=== PATIENT | male | born 1995 | race Caucasian/White ===

== ENCOUNTER 2021-03-20 19:19 | Emergency (ER) | payer OTHER, MEDICAID, SELFPAY ==
[2021-03-20] VITALS (11 sets, daily range): BP systolic 133–141; BP diastolic 64–76; PULSE 63–118; RESP 8–24; TEMP 37.2; O2SAT 96–98; BMI 28.7
[2021-03-20 19:51] LABS: Add Manual Diff / Slide Review NO; Basophils Absolute Auto 100 /uL (0-100); Basophils Percent Auto 0.7 % (0-2); Eosinophils Absolute Auto 100 /uL (0-450); Hemoglobin 14.3 g/dL (13.5-17.5); Lymphocytes Absolute Auto 2200 /uL (1100-4500); Lymphocytes Percent Auto 22.5 % (25-40); Mean Corpuscular Hemoglobin 30.5 PG (26-34); Mean Corpuscular Volume 87.1 fL (80-100); Monocytes Absolute Auto 700 /uL (0-900); Monocytes Percent Auto 6.9 % (3-14); Neutrophils Absolute Auto 6800 /uL (1500-7000); Neutrophils Percent Auto 68.9 % (50-75); Platelet Count 307 X10^3/uL (150-400); Red Blood Cell Count 4.71 X10^6/uL (4.5-5.9); Red Cell Distribution Width 12.6 % (11.6-14.8); White Blood Cell Count 9.9 X10^3/uL (4.5-11.0)
[2021-03-20 20:05] LABS: Alanine Aminotransferase 20 IU/L (<50); Albumin 4.4 g/dL (3.5-5.0); Albumin Globulin Ratio 1.5 (1.0-2.8); Alkaline Phosphatase 66 U/L (38-126); Aspartate Aminotransferase 29 IU/L (17-59); Bilirubin Total 0.5 mg/dL (0.2-1.3); Blood Urea Nitrogen 14 mg/dL (9-20); Calcium 9.2 mg/dL (8.4-10.2); Carbon Dioxide 25 mmol/L (22-32); Chloride 107 mmol/L (98-107); Estimated Glomerular Filt Rate > 60.0 mL/min (>60); Globulin 2.9 g/dL (1.7-4.1); Glucose 104 mg/dL (70-100); HEMOLYSIS < 15 (0-50); Potassium 4.3 mmol/L (3.4-5.1); Sodium 139 mmol/L (137-145); Total Protein 7.3 g/dL (6.3-8.2)
[2021-03-20 20:50] LABS: Appearance Urine UA CLEAR; Bacteria Urine None Seen; Bilirubin Urine UA NEGATIVE (NEGATIVE); Color Urine UA YELLOW; Glucose Urine UA NEGATIVE (Negative); Ketones Urine UA NEGATIVE (NEGATIVE); Leukocyte Esterase Urine UA NEGATIVE (NEGATIVE); Nitrite Urine UA NEGATIVE (Negative); Occult Blood Urine UA NEGATIVE (Negative); Protein Urine UA NEGATIVE (Negative); RBC Urine None Seen (0-5/HPF); Urobilinogen Urine UA 0.2 E.U./dL (0.2); WBC Urine None Seen (0-5/HPF)
[2021-03-20 21:03] LABS: Culture Indicated Urine Cult Not Indicated; Urine Comments Microscopic Normal
--- NOTE | 2021-03-20 21:16 | PC.NURSE ---
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 Reports pain and pressure behind jaw bones. Tonsil appears slightly larger and red on left. No exudate noted. Reports headache 8/10. pressure
--- NOTE | 2021-03-20 22:25 | DI.MRI.S_ITS ---
PROCEDURE: MR CERVICAL SPINE WO/W CON INDICATIONS: intermittent paresthesia and weakness TECHNIQUE: Noncontrast sagittal T1 spin echo and T2 fast spin echo, sagittal STIR, sagittal PD fast spin echo, foraminal oblique sagittal T2 fast spin echo, axial gradient echo or T2 fast spin echo through the cervical spine. After the administration of contrast, sagittal and axial T1 spin echo with fat saturation through the cervical spine. COMPARISON: None. FINDINGS: Image quality: Excellent. Alignment and curvature: Straightening of the normal lordotic curvature. Marrow: No acute fracture. Spinal cord: Visualized spinal cord is normal in size, without white matter lesions. No suspicious intramedullary enhancement. No cerebellar tonsillar herniation. Paraspinous soft tissues: No paravertebral masses or suspicious enhancement. C2-C3: Normal appearance. C3-C4: No canal narrowing. Minimal bilateral foraminal narrowing C4-C5: Normal appearance. C5-C6: Normal appearance. C6-C7: Normal appearance. C7-T1: Normal appearance. IMPRESSION: No cord signal changes to suggest demyelination. No abnormal enhancement. No high-grade canal or foraminal stenosis. Dictated by: Billy Rai M.D. on 03/21/2021 at 9:36 Approved by: Billy Rai M.D. on 03/21/2021 at 9:39
--- NOTE | 2021-03-20 22:25 | DI.MRI.S_ITS ---
PROCEDURE: MR HEAD/BRAIN WO/W CON INDICATIONS: paresthesias and weakness intermittent TECHNIQUE: Noncontrast axial T1 spin echo, axial T2 fast spin echo, sagittal and axial FLAIR, coronal T2 fast spin echo, axial gradient echo, axial diffusion and ADC through the brain. After the administration of contrast, axial and coronal 3D VIBE or T1 spin echo with fat saturation through the brain. COMPARISON: None. FINDINGS: Image quality: Excellent. CSF Spaces: Basal cisterns are patent. No extra-axial fluid collections. Ventricles are normal in size and shape. Brain: No midline shift. No intracranial bleeds or masses. No abnormal intracranial enhancement. The brainstem appears normal. Diffusion-weighted images demonstrate no acute ischemic insults. No chronic ischemic insults. Normal intravascular flow voids are present. Skull and face: Calvarial marrow is normal in signal. Orbits appear normal. Sinuses: Sinuses and mastoids appear clear. IMPRESSION: No specific white matter signal changes to suggest demyelination. No evidence of acute ischemia. No acute intracranial signal abnormality or enhancement. Dictated by: Billy Rai M.D. on 03/21/2021 at 9:32 Approved by: Billy Rai M.D. on 03/21/2021 at 9:34
[2021-03-20] MEDS: METOPROLOL IR 25 MG TABLET PO (22:37)
[2021-03-20] MEDS: SODIUM CHLORIDE 0.9% 1,000 ML 1000 ML IV (22:38)
[2021-03-20 23:14] LABS: Thyroid Stimulating Hormone 2.47 uIU/mL (0.47-4.68)
[2021-03-21] VITALS (20 sets, daily range): BP systolic 127–128; BP diastolic 70–72; PULSE 73–95; RESP 10–23; O2SAT 95–98
--- NOTE | 2021-03-21 05:01 | ED_ITS ---
HPI - Neuro Symptoms/Deficit <Mana Gupta MD - Last Filed: 03/27/21 18:22> General Chief Complaint: Neuro Symptoms/Deficit Stated Complaint: states he is having a stroke Time Seen by Provider: 03/20/21 19:33 Source: patient Mode of arrival: Ambulatory Limitations: no limitations History of Present Illness HPI Narrative: 25-year-old gentleman with a history of depression presents with an interesting progression of neurologic symptoms. Today he feels like his head is going to explode, he is numb all over, he feels like something is pushing at his carotid and his bowel is blocked. He feels that his entire body has lost sensation he has numbness in the tips of all toes and fingers and describes a distinct lying down the midline of his body with worsening symptoms on the right than the left. He describes an intense pressure behind his jaw that is worse with head position. Over the last week he complains of decreased eating, tongue numbness, occasional difficulty breathing, dizzy when he stands up, irregular heartbeat, his stomach isn't working and even his eyesight is not good as he sees black spots occasionally in all visual holman. He notes that he has had these symptoms for a number of years with significant progression recently. He has seen a neurologist in the past and 3 years ago had an MRI of the brain and nerve conduction studies that did not find any anatomic diagnoses and he was eventually diagnosed with psychosomatic syndrome. On presentation today he is quite lucid and obviously distressed by all of his physical symptoms and lack of unifying diagnosis. On Anticoagulants: Yes ([id number]) Related Data Home Medications Medication Instructions Recorded Confirmed bupropion HCl 300 mg 24 hr tablet, 300 mg PO QAM 03/18/21 03/18/21 extended release Previous Rx's Medication Instructions Recorded amoxicillin 875 mg tablet 875 mg PO BID 10 Days #20 tab 03/18/21 Allergies Allergy/AdvReac Type Severity Reaction Status Date / Time No Known Drug Allergies Allergy Verified 03/20/21 19:23 Review of Systems <Mana Gupta MD - Last Filed: 03/27/21 18:22> Review of Systems Narrative: Remainder of complete review of systems is otherwise unremarkable except for that included in the HPI. Hematologic/Lymphatic On Anticoagulants: Yes ([id number]) Patient History <Mana Gupta MD - Last Filed: 03/27/21 18:22> Medical History Acute recurrent tonsillitis Depression Social History Smoking Status: Never smoker Smoking Status: Never smoker alcohol intake frequency: holidays/special occasions only Substance Use Type: marijuana Exam <Mana Gupta MD - Last Filed: 03/27/21 18:22> Narrative Exam Narrative: General: Healthy appearing, in no acute distress. Able to give a complete and coherent history. Well-nourished well-developed HEENT: Moist mucous membranes, normal sclera with reactive pupils, Neck: No JVD, supple Respiratory: Lungs are clear to auscultation, no wheezing no rales no rhonchi. Full and symmetrical air movement Cardiac: Regular rate and rhythm no murmurs no bruits Abdomen: Soft, nontender, good bowel tones, no flank pain Skin: Warm and dry, no rashes Neurologic: Grossly neurologically intact with no obvious asymmetries or abnormalities. fine motor tremor affecting hands. Left small finger with uncontrolled extention spasm. Normal upper and lower extemity reflexes. No objective findings of acute senory loss Extremities: No trauma, well perfused Psych: defensive with poor eye contact Initial Vital Signs Initial Vital Signs: Vital Signs Temperature 99.0 F 03/20/21 19:23 Pulse Rate 63 03/20/21 19:23 Respiratory Rate 16 03/20/21 19:23 Blood Pressure 139/76 03/20/21 19:23 Pulse Oximetry 96 03/20/21 19:23 <Dianna Capone DO - Last Filed: 03/21/21 19:34> Initial Vital Signs Initial Vital Signs: Vital Signs Temperature 99.0 F 03/20/21 19:23 Pulse Rate 63 03/20/21 19:23 Respiratory Rate 16 03/20/21 19:23 Blood Pressure 139/76 03/20/21 19:23 Pulse Oximetry 96 03/20/21 19:23 Course <Mana Gupta MD - Last Filed: 03/27/21 18:22> Orders Ordered: Discontinued Medications Sodium Chloride (Normal Saline 0.9%) 1,000 mls @ 1,000 mls/hr IV BOLUS ONE Stop: 03/20/21 23:24 Last Infusion: 03/20/21 23:35 Dose: 0 mls/hr Documented by: Admin: 03/20/21 22:38 Dose: 1,000 mls/hr Documented by: MY Metoprolol Tartrate (Metoprolol Ir 25 Mg Tablet) 25 mg PO NOW ONE Stop: 03/20/21 22:26 Last Admin: 03/20/21 22:37 Dose: 25 mg Documented by: MY Vital Signs Vital signs: Vital Signs - 8 hr 03/21/21 02:00 03/21/21 02:30 03/21/21 03:00 Pulse Rate 81 83 79 Respiratory Rate 20 13 Pulse Oximetry 97 98 96 03/21/21 03:30 03/21/21 04:00 03/21/21 04:30 Pulse Rate 74 79 77 Respiratory Rate 13 15 12 Pulse Oximetry 97 97 96 03/21/21 05:00 03/21/21 05:30 03/21/21 06:00 Pulse Rate 78 75 75 Respiratory Rate 13 10 L 19 Pulse Oximetry 98 98 96 03/21/21 06:30 03/21/21 07:00 03/21/21 07:30 Pulse Rate 75 85 73 Respiratory Rate 19 15 Pulse Oximetry 96 98 97 03/21/21 08:00 Pulse Rate 93 H Respiratory Rate 23 Pulse Oximetry 97 <Dianna Capone, - Last Filed: 03/21/21 19:34> Orders Ordered: Discontinued Medications Sodium Chloride (Normal Saline 0.9%) 1,000 mls @ 1,000 mls/hr IV BOLUS ONE Stop: 03/20/21 23:24 Last Infusion: 03/20/21 23:35 Dose: 0 mls/hr Documented by: Admin: 03/20/21 22:38 Dose: 1,000 mls/hr Documented by: MY Metoprolol Tartrate (Metoprolol Ir 25 Mg Tablet) 25 mg PO NOW ONE Stop: 03/20/21 22:26 Last Admin: 03/20/21 22:37 Dose: 25 mg Documented by: MY Vital Signs Vital signs: Vital Signs - 8 hr 03/21/21 02:00 03/21/21 02:30 03/21/21 03:00 Pulse Rate 81 83 79 Respiratory Rate 20 13 Pulse Oximetry 97 98 96 03/21/21 03:30 03/21/21 04:00 03/21/21 04:30 Pulse Rate 74 79 77 Respiratory Rate 13 15 12 Pulse Oximetry 97 97 96 03/21/21 05:00 03/21/21 05:30 03/21/21 06:00 Pulse Rate 78 75 75 Respiratory Rate 13 10 L 19 Pulse Oximetry 98 98 96 03/21/21 06:30 03/21/21 07:00 03/21/21 07:30 Pulse Rate 75 85 73 Respiratory Rate 19 15 Pulse Oximetry 96 98 97 03/21/21 08:00 Pulse Rate 93 H Respiratory Rate 23 Pulse Oximetry 97 MDM - Neuro Symptoms/Deficit <Mana Gupta MD - Last Filed: 03/27/21 18:22> Medical Records Attestation: I reviewed the patient's medical records. Lab Data Attestation: I reviewed the patient's lab results. Result diagrams: 03/20/21 19:44 03/20/21 19:44 Labs: Lab Results 03/20/21 03/20/21 03/20/21 Range/Units 19:44 19:44 19:44 WBC 9.9 (4.5-11.0) X10^3/uL RBC 4.71 (4.5-5.9) X10^6/uL Hgb 14.3 (13.5-17.5) g/dL Hct 41.0 (41-53) % MCV 87.1 (80-100) fL MCH 30.5 (26-34) PG MCHC 35.0 (30-36) % RDW 12.6 (11.6-14.8) % Plt Count 307 (150-400) X10^3/uL Neut % (Auto) 68.9 (50-75) % Lymph % (Auto) 22.5 L (25-40) % [place] % (Auto) 6.9 (3-14) % Eos % (Auto) 1.0 L (2-4) % Baso % (Auto) 0.7 (0-2) % Neut # (Auto) 6800 (1210-3114) /uL Lymph # (Auto) 2200 (3447-1422) /uL [place] # (Auto) 700 (0-900) /uL Eos # (Auto) 100 (0-450) /uL Baso # (Auto) 100 (0-100) /uL Sodium 139 (137-145) mmol/L Potassium 4.3 (3.4-5.1) mmol/L Chloride 107 (98-107) mmol/L Carbon Dioxide 25 (22-32) mmol/L BUN 14 (9-20) mg/dL Creatinine 1.27 H (0.66-1.25) mg/dL Estimated GFR > 60.0 (>60) mL/min BUN/Creatinine Ratio 11.0 (6-22) Glucose 104 H (70-100) mg/dL Calcium 9.2 (8.4-10.2) mg/dL Total Bilirubin 0.5 (0.2-1.3) mg/dL AST 29 (17-59) IU/L ALT 20 (<50) IU/L Alkaline Phosphatase 66 (38-126) U/L Total Protein 7.3 (6.3-8.2) g/dL Albumin 4.4 (3.5-5.0) g/dL Globulin 2.9 (1.7-4.1) g/dL Albumin/Globulin Ratio 1.5 (1.0-2.8) TSH 2.47 (0.47-4.68) uIU/mL Urine Color Urine Appearance Urine pH (4.5-8.0) Ur Specific [place] (1.000-1.035) Urine Protein (Negative) Urine Glucose (UA) (Negative) g/dL Urine Ketones (NEGATIVE) Urine Occult Blood (Negative) Urine Nitrate (Negative) Urine Bilirubin (NEGATIVE) Urine Urobilinogen (0.2) E.U./dL Ur Leukocyte Esterase (NEGATIVE) Urine RBC (0-5/HPF) Urine WBC (0-5/HPF) Urine Bacteria (None) Ur Culture Indicated? Micro UA Comment 03/20/21 Range/Units 20:33 WBC (4.5-11.0) X10^3/uL RBC (4.5-5.9) X10^6/uL Hgb (13.5-17.5) g/dL Hct (41-53) % MCV (80-100) fL MCH (26-34) PG MCHC (30-36) % RDW (11.6-14.8) % Plt Count (150-400) X10^3/uL Neut % (Auto) (50-75) % Lymph % (Auto) (25-40) % [place] % (Auto) (3-14) % Eos % (Auto) (2-4) % Baso % (Auto) (0-2) % Neut # (Auto) (3379-2028) /uL Lymph # (Auto) (8117-3987) /uL [place] # (Auto) (0-900) /uL Eos # (Auto) (0-450) /uL Baso # (Auto) (0-100) /uL Sodium (137-145) mmol/L Potassium (3.4-5.1) mmol/L Chloride (98-107) mmol/L Carbon Dioxide (22-32) mmol/L BUN (9-20) mg/dL Creatinine (0.66-1.25) mg/dL Estimated GFR (>60) mL/min BUN/Creatinine Ratio (6-22) Glucose (70-100) mg/dL Calcium (8.4-10.2) mg/dL Total Bilirubin (0.2-1.3) mg/dL AST (17-59) IU/L ALT (<50) IU/L Alkaline Phosphatase (38-126) U/L Total Protein (6.3-8.2) g/dL Albumin (3.5-5.0) g/dL Globulin (1.7-4.1) g/dL Albumin/Globulin Ratio (1.0-2.8) TSH (0.47-4.68) uIU/mL Urine Color Yellow Urine Appearance Clear Urine pH 7.0 (4.5-8.0) Ur Specific [place] 1.010 (1.000-1.035) Urine Protein Negative (Negative) Urine Glucose (UA) Negative (Negative) g/dL Urine Ketones Negative (NEGATIVE) Urine Occult Blood Negative (Negative) Urine Nitrate Negative (Negative) Urine Bilirubin Negative (NEGATIVE) Urine Urobilinogen 0.2 (0.2) E.U./dL Ur Leukocyte Esterase Negative (NEGATIVE) Urine RBC None seen (0-5/HPF) Urine WBC None seen (0-5/HPF) Urine Bacteria None seen (None) Ur Culture Indicated? Cult not indicated Micro UA Comment Microscopic normal Point of Care Testing Glucose POC 95 MDM Narrative Medical decision making narrative: 25-year-old man with unexplained constellation of progressive neurologic symptoms associated with increasing anxiety and frustration over lack of unifying diagnosis. Last imaging was over 3 years ago and did not include cervical spine imaging. Lab work is reassuring including TSH. hyperthyroidism cannot explain his fine tremor at this time. With his reports of progressive neurologic symptoms will obtain MRI with and without of both brain and cervical cord. If findings are completely normal patient should be given copies of the reports to solidify the fact there were no anatomic explanations for his constellation of symptoms. If there abnormalities clearly these need to be appropriately addressed MRI is ordered for early this morning and hopefully can be facilitated early in the day. Care will be turned over to Dr. Capone <Dianna Capone, DO - Last Filed: 03/21/21 19:34> Lab Data Attestation: I reviewed the patient's lab results. Labs: Lab Results 03/20/21 03/20/21 03/20/21 Range/Units 19:44 19:44 19:44 WBC 9.9 (4.5-11.0) X10^3/uL RBC 4.71 (4.5-5.9) X10^6/uL Hgb 14.3 (13.5-17.5) g/dL Hct 41.0 (41-53) % MCV 87.1 (80-100) fL MCH 30.5 (26-34) PG MCHC 35.0 (30-36) % RDW 12.6 (11.6-14.8) % Plt Count 307 (150-400) X10^3/uL Neut % (Auto) 68.9 (50-75) % Lymph % (Auto) 22.5 L (25-40) % [place] % (Auto) 6.9 (3-14) % Eos % (Auto) 1.0 L (2-4) % Baso % (Auto) 0.7 (0-2) % Neut # (Auto) 6800 (5966-9032) /uL Lymph # (Auto) 2200 (9657-7084) /uL [place] # (Auto) 700 (0-900) /uL Eos # (Auto) 100 (0-450) /uL Baso # (Auto) 100 (0-100) /uL Sodium 139 (137-145) mmol/L Potassium 4.3 (3.4-5.1) mmol/L Chloride 107 (98-107) mmol/L Carbon Dioxide 25 (22-32) mmol/L BUN 14 (9-20) mg/dL Creatinine 1.27 H (0.66-1.25) mg/dL Estimated GFR > 60.0 (>60) mL/min BUN/Creatinine Ratio 11.0 (6-22) Glucose 104 H (70-100) mg/dL Calcium 9.2 (8.4-10.2) mg/dL Total Bilirubin 0.5 (0.2-1.3) mg/dL AST 29 (17-59) IU/L ALT 20 (<50) IU/L Alkaline Phosphatase 66 (38-126) U/L Total Protein 7.3 (6.3-8.2) g/dL Albumin 4.4 (3.5-5.0) g/dL Globulin 2.9 (1.7-4.1) g/dL Albumin/Globulin Ratio 1.5 (1.0-2.8) TSH 2.47 (0.47-4.68) uIU/mL Urine Color Urine Appearance Urine pH (4.5-8.0) Ur Specific [place] (1.000-1.035) Urine Protein (Negative) Urine Glucose (UA) (Negative) g/dL Urine Ketones (NEGATIVE) Urine Occult Blood (Negative) Urine Nitrate (Negative) Urine Bilirubin (NEGATIVE) Urine Urobilinogen (0.2) E.U./dL Ur Leukocyte Esterase (NEGATIVE) Urine RBC (0-5/HPF) Urine WBC (0-5/HPF) Urine Bacteria (None) Ur Culture Indicated? Micro UA Comment 03/20/21 Range/Units 20:33 WBC (4.5-11.0) X10^3/uL RBC (4.5-5.9) X10^6/uL Hgb (13.5-17.5) g/dL Hct (41-53) % MCV (80-100) fL MCH (26-34) PG MCHC (30-36) % RDW (11.6-14.8) % Plt Count (150-400) X10^3/uL Neut % (Auto) (50-75) % Lymph % (Auto) (25-40) % [place] % (Auto) (3-14) % Eos % (Auto) (2-4) % Baso % (Auto) (0-2) % Neut # (Auto) (6246-8766) /uL Lymph # (Auto) (5559-7065) /uL [place] # (Auto) (0-900) /uL Eos # (Auto) (0-450) /uL Baso # (Auto) (0-100) /uL Sodium (137-145) mmol/L Potassium (3.4-5.1) mmol/L Chloride (98-107) mmol/L Carbon Dioxide (22-32) mmol/L BUN (9-20) mg/dL Creatinine (0.66-1.25) mg/dL Estimated GFR (>60) mL/min BUN/Creatinine Ratio (6-22) Glucose (70-100) mg/dL Calcium (8.4-10.2) mg/dL Total Bilirubin (0.2-1.3) mg/dL AST (17-59) IU/L ALT (<50) IU/L Alkaline Phosphatase (38-126) U/L Total Protein (6.3-8.2) g/dL Albumin (3.5-5.0) g/dL Globulin (1.7-4.1) g/dL Albumin/Globulin Ratio (1.0-2.8) TSH (0.47-4.68) uIU/mL Urine Color Yellow Urine Appearance Clear Urine pH 7.0 (4.5-8.0) Ur Specific [place] 1.010 (1.000-1.035) Urine Protein Negative (Negative) Urine Glucose (UA) Negative (Negative) g/dL Urine Ketones Negative (NEGATIVE) Urine Occult Blood Negative (Negative) Urine Nitrate Negative (Negative) Urine Bilirubin Negative (NEGATIVE) Urine Urobilinogen 0.2 (0.2) E.U./dL Ur Leukocyte Esterase Negative (NEGATIVE) Urine RBC None seen (0-5/HPF) Urine WBC None seen (0-5/HPF) Urine Bacteria None seen (None) Ur Culture Indicated? Cult not indicated Micro UA Comment Microscopic normal Point of Care Testing Glucose POC 95 Imaging Data MRI Brain: Radiologist's Impression: Alireza Jha 25 M [address] [address] Resonance ReportSigned Patient: Alireza Jha EMR#: [id number]: 1995Acct:[id number]/Sex: MDate of Service: 03/20/21Loc: EDAccession Number: [id number] Procedure: MR head/brain wo/w con Ordering Provider: Mana Gupta MD PROCEDURE: MR HEAD/BRAIN WO/W CON INDICATIONS: paresthesias and weakness intermittent TECHNIQUE: Noncontrast axial T1 spin echo, axial T2 fast spin echo, sagittal and axial FLAIR, coronal T2 fast spin echo, axial gradient echo, axial diffusion and ADC through the brain. After the administration of contrast, axial and coronal 3D VIBE or T1 spin echo with fat saturation through the brain. COMPARISON: None. FINDINGS: Image quality: Excellent. CSF Spaces: Basal cisterns are patent. No extra-axial fluid collections. Ventricles are normal in size and shape. Brain: No midline shift. No intracranial bleeds or masses. No abnormal intracranial enhancement. The brainstem appears normal. Diffusion-weighted images demonstrate no acute ischemic insults. No chronic ischemic insults. Normal intravascular flow voids are present. Skull and face: Calvarial marrow is normal in signal. Orbits appear normal. Sinuses: Sinuses and mastoids appear clear. IMPRESSION: No specific white matter signal changes to suggest demyelination. No evidence of acute ischemia. No acute intracranial signal abnormality or enhancement. Dictated by: Billy Rai M.D. on 03/21/2021 at 9:32 Approved by: Billy Rai M.D. on 03/21/2021 at 9:34 MRI C spine: Radiologist's Impression: [address] [address] Resonance ReportSigned Patient: Alireza Jha EMR#: [id number]: 1995Acct:[id number]/Sex: MDate of Service: 03/20/21Loc: EDAccession Number: [id number] Procedure: MR cervical spine wo/w con Ordering Provider: Mana Gupta MD PROCEDURE: MR CERVICAL SPINE WO/W CON INDICATIONS: intermittent paresthesia and weakness TECHNIQUE: Noncontrast sagittal T1 spin echo and T2 fast spin echo, sagittal STIR, sagittal PD fast spin echo, foraminal oblique sagittal T2 fast spin echo, axial gradient echo or T2 fast spin echo through the cervical spine. After the administration of contrast, sagittal and axial T1 spin echo with fat saturation through the cervical spine. COMPARISON: None. FINDINGS: Image quality: Excellent. Alignment and curvature: Straightening of the normal lordotic curvature. Marrow: No acute fracture. Spinal cord: Visualized spinal cord is normal in size, without white matter lesions. No suspicious intramedullary enhancement. No cerebellar tonsillar herniation. Paraspinous soft tissues: No paravertebral masses or suspicious enhancement. C2-C3: Normal appearance. C3-C4: No canal narrowing. Minimal bilateral foraminal narrowing C4-C5: Normal appearance. C5-C6: Normal appearance. C6-C7: Normal appearance. C7-T1: Normal appearance. IMPRESSION: No cord signal changes to suggest demyelination. No abnormal enhancement. No high-grade canal or foraminal stenosis. Dictated by: Billy Rai M.D. on 03/21/2021 at 9:36 Approved by: Billy Rai M.D. on 03/21/2021 at 9:39 [facility] Narrative Medical decision making narrative: This a 25-year-old male who comes to the emergency department with complaint of of memory as well as headache. Patient does see a neurologist in [place]. Dr. Lucia did appreciate a fine tremor on exam and MRI brain and Cspine were ordered but were unavailable overnight. Patient was signed out to myself all these were pending. Patient was seen by myself. Reviewed his findings from overnight and today. Patient's MRI brain and C-spine are negative. Patient was recommended follow-up with either primary care or more preferably with Neurology. Patient did note that he has had his bupropion increased from 150 mg to 300 mg daily about 3 weeks ago. We discussed this could potentially cause some tremor but not necessarily all of his symptoms and some of these were present even before. Discharge Plan Departure Patient Disposition: Home Clinical Impression: Tremor Activity Restrictions/Additional Instructions: Follow up with your physician or neurology for recheck. Call for an appointment. Your imaging today including MRI of brain and cervical spine is negative. If you are still taking bupropion daily this can sometimes have side effects that are possibly related to her symptoms and I would discuss this with your physician. Please return for fevers greater 100.4 F, altered mental status, severe headaches, persistent vomiting, inability sure extremities, difficulty with ambulation or other new or concerning symptoms. Prescriptions: No Action bupropion HCl 300 mg tablet extended release 24 hr 300 mg PO QAM RF: 0 amoxicillin 875 mg tablet 875 mg PO BID 10 Days Qty: 20 RF: 0 Referrals: Roberto Bruce MD [Primary Care Provider] -
== END 2021-03-21 10:12 | disposition home or self-care (01) ==
PROVIDERS: Emergency Medicine; Emergency Provider Emergency Medicine; PCP Family Medicine
DX: R25.1 Tremor, unspecified (principal); R42 Dizziness and giddiness; R51.9 Headache, unspecified; R20.2 Paresthesia of skin; R53.1 Weakness
CPT/HCPCS: 36415; 70553; 72156; 80053; 81001; 82962; 84443; 85025; 96360; 99284; 99285

== ENCOUNTER → 2021-06-04 11:06 | Outpatient (CLI) | payer OTHER, MEDICAID, SELFPAY ==
--- NOTE | 2021-06-04 | DI.RAD.S_ITS ---
PROCEDURE: FL BARIUM SWALLOW W SPEECH INDICATIONS: Dysphagia, unspecified COMPARISON: None. TECHNIQUE: Examination was conducted in conjunction with speech pathology per standard protocol. In the lateral projection, filming was performed of the patient swallowing. AP projection filming may also be performed with patient swallowing. COMPARISON: FINDINGS: Function: The oral preparatory phase appears prolonged, with proper containment. The subsequent oral propulsive phase, pharyngeal phase, and esophageal phase of swallowing also appear delayed with all proffered substances. There is epiglottic dysmotility. No laryngotracheal penetration or aspiration. There is mild to moderate residue Morphology: No cricopharyngeal bar is identified. No cervical esophageal webs. No Zenker's diverticulum. No strictures. IMPRESSION: No definite aspiration. Prolonged oropharyngeal swallowing, and epiglottic dysmotility. Dictated by: Billy Rai M.D. on 06/06/2021 at 12:57 Approved by: Billy Rai M.D. on 06/06/2021 at 12:58
--- NOTE | 2021-06-05 17:15 | ST.SWALLOW ---
Visit Care Team Role Provider Type Roberto Bruce MD Primary Care Provider Physician Specialty: Family Practice Address: [address] [place] [address], [phone] Email: [email or web address] Zeeshan Tinajero MD Attending Provider Physician Referring Provider Specialty: Ear, Nose, Throat Address: [address] [place] [address], [id number] Email: [email or web address] Modified Barium Swallow Study PATENT L[employer]IGATION [employer]OCIATE Modified Barium Swallow Study Start: 06/04/21 13:37 Freq: Status: Active Protocol: Document 06/04/21 13:38 LNK (Rec: 06/04/21 14:16 LNK [id number]) Modified Barium Swallow Study Total Time Visit Start Time 11:30 Visit Stop Time 12:00 Total Visit Minutes 30 Referral Referring Physician PRIMITIVO Paz Reason for Referral dysphagia Setting Setting Outpatient Care Patient Information Identification Type Name,Date of Patient History Pt is a 25 year old male seen for a Modified Barium Swallow Study at the referral of Dr. Tinajero, ENT. According to the pt, he gets a sensation of food sticking in his throat ( points to the area near the larynx). He reported that he experiences this sensation with solids, liquids, pills and his saliva. Pt reported difficulty with smaller pieced foods such as popcorn, chips, pills. However, he stated that larger bolus sizes are easier to swallow. He stated that this sticking in his throat occurs every day, every time I swallow. He also stated that 2-3 times per week he will regurgitate acid- tasting substance into his mouth. Asked about GERD, pt stated that he has had reflux for approximately 5 years, but has not seen a physician about it; nor does he take medication for GERD other than an occasional Rolaids or Pepto Bismol. The patient reported that he has seen a neurologist twice for overall body numbness and he has had two MRI tests. According to the pt, the neurologist reported that all testing results were normal. Currently , he notes numbness in his hands, legs, arms and tongue. He stated that his tongue is always numb. As a final note , the pt reported that in December 2020, he experienced a very major stomach ache that lasted several days. He did not seek out medical attention . Subjective Observations Pt was seated in the fluoroscopy chair. Instructions and procedures were described for him, after which he indicated he understood and agreed to proceed. Patient Positioning Position View Lat-A/P Imaging Lateral View Textures Administered Trials Presented Thin Liquid via Spoon,Thin Liquid via Cup,Bentley Liquid via Cup,Pudding Thick Liquid via Spoon,Regular Textures Oral Phase Source: MBSIMP (TM) (C) Bolus Specific Scoring Grid Lip Closure No Impairment (WNL) Tongue Control During Bolus Hold Minimal Impairment Bolus Prep/Mastication Minimal Impairment Bolus Transport/Lingual Motion Severe Impairment A/P Lingual Propulsion Delay Yes: During MBSS, AP transport coordination/control decreased significantly Oral Residue Moderate Impairment Residue Clearing Moderate Impairment Nasal Regurgitation No Additional Oral Phase Observations Initially, pt's OME and diadochokinesis were WNL for all structures. Pt's velum, tonsils and uvula were reddened with mild swelling. Natural teeth in good hygiene. However, as the MBSS continued, it became more difficult for the pt to move the bolus to the pharynx. The lingual musculature became less efficient in controlling the bolus to a single swallow. By the end of the MBSS, the pt needed ~10 swallows to clear a teaspoonful of pudding thick barium paste and 7-8 swallows to clear the cookie + barium. Pharyngeal Phase Source: MBSIMP (TM) (C) Bolus Specific Scoring Grid Delayed Initiation of Pharyngeal Swallow Yes Soft Palate Elevation Minimal Impairment Tongue Base Strength/Range of Motion Moderate Impairment Residue Along the Tongue Base Yes Clearance of Residue Along Tongue Base Moderate Impairment Laryngeal Elevation Mild Impairment Anterior Hyoid Movement Mild Impairment Epiglottic Range of Motion Mild Impairment Vallecular Residue Yes Clearance of Vallecular Residue Moderate Impairment Laryngeal Vestibular Closure Minimal Impairment Pharyngeal Stripping Wave Mild Impairment Posterior Pharyngeal Wall Residue Yes Clearance of Posterior Pharyngeal Wall Moderate Impairment Residue Upper Esophageal Sphincter Opening Minimal Impairment Residue in the Pyriform Sinuses Yes Clearance of Residue in the Pyriform Moderate Impairment Sinuses Esophageal Clearance Upright Position Minimal Impairment Pharyngoesophageal Backflow Observed No Additional Pharyngeal Phase Observations The initial trials with thin liquids (e.g. 3 teaspoons, 1 cup sip, 4 consecutive swallows) demonstrated prompt single swallows/bolus. Hyolayngeal elevation and movement appeared to be WFL. The base of tongue and epiglottal movements initially were observed to be WFL. As the trials continued (i.e.., nectar thick liquid, pudding thick liquid, cookie trial, thin water and an 11mm barium tablet), there was diminished linguapharyngeal contact, decreased posterior pharyngeal wall contraction and increasingly weak epiglottic movement returning to upward position observed. Additionally, as the trials progressed, an increasing number of swallow attempts were needed to pass the bolus from the oral cavity to the pharynx and UES. By the end of the study, up to 10 swallows per teaspoon were needed to pass a bolus into the pharynx/UES. It appeared that there was a progressive weakness and diminished epiglottic ability to return to upright. Pt noted that the stuck feeling was present after the nectar thick liquid trial, and was felt for the remainder of the MBSS. Pharyngeal pooling was increasingly observed in the valeculla, pyriform sinuses and the posterior pharyngeal wall. No laryngeal penetration or aspiration were observed. A/P View Textures Administered Trials Presented Barium Tablet A/P View Observations Pharyngeal Contraction WFL Vocal Fold Function Good Esophageal Function WFL Esophageal Clearance Upright Position WFL Clinical Impressions Dysphagia Type oropharyngeal dysphagia that appears to be progressive Findings Pt presented with oropharyngeal dysphagia that appeared to progress as the MBSS continued. Initially, pt 's swallow appeared to be normal, as expected for ayoung person. However, with each successive trial, the pt demonstrated increasing difficulty moving the bous A/P lingually, decreased ability to swallow even small amounts of barium without needing multiple swallows per bolus as well as increasing pharyngeal pooling with each trial. At one point, the pt needed ~7-10 swallows to completely clear the final trials (i.e., a teaspoon of pudding thick paste and a small cookie with barium). The pt's epiglottis appeared to become less responsive to the bolus with decreased or slower return to upright position after each swallow. The dysphagia described is highly unusual, especially in such a young person. For a healthy adult, each swallow, regardless of thickness and/or texture, would normally be swallowed with one attempt without residue. The results of the pt's MBSS, the observations made, along with pt description of overall body and oral/tongue numbness are are suggestive of a neurological issue such as MS or ALS. Strongly recommend a referral to [facility] for neurological assessment. Recommendations Diet Comments no change in diet Treatment Plan Recommended Referrals Primary Care Physician, Neurology,GI Consult Additional Recommended Referrals GI consult re: GERD; Neurology consult at [facility]
== END ==
PROVIDERS: PCP Family Medicine; Referring Provider Otolaryngology; Visit Provider Otolaryngology
DX: R13.10 Dysphagia, unspecified (principal); K22.4 Dyskinesia of esophagus
CPT/HCPCS: 74230; 92611

== ENCOUNTER → 2021-10-01 11:50 | Outpatient (CLI) | payer OTHER, MEDICAID, SELFPAY | PROVIDERS: PCP Family Medicine; Referring Provider Physician Assistant Medical; Visit Provider Physician Assistant Medical | DX: L98.0 Pyogenic granuloma (principal) | CPT/HCPCS: 87070; 87075; 87077; 87147; 87186; 87205 ==

== ENCOUNTER → 2023-02-17 13:59 | Outpatient (CLI) | payer OTHER, MEDICAID, SELFPAY ==
[2023-02-17 14:50] LABS: Alanine Aminotransferase 83 IU/L (<50); Albumin 4.8 g/dL (3.5-5.0); Albumin Globulin Ratio 1.7 (1.0-2.8); Alkaline Phosphatase 65 U/L (38-126); Aspartate Aminotransferase 53 IU/L (17-59); BUN Creatinine Ratio 11.9 (6-22); Blood Urea Nitrogen 14 mg/dL (9-20); Calcium 9.5 mg/dL (8.4-10.2); Carbon Dioxide 29 mmol/L (22-32); Chloride 101 mmol/L (98-107); Cholesterol 276 mg/dL (140-199); Estimated Glomerular Filt Rate > 60 mL/min (>60); Globulin 2.9 g/dL (1.7-4.1); Glucose 100 mg/dL (70-100); HDL Cholesterol 44 mg/dL (40-60); HEMOLYSIS < 15 (0-50); LDL Cholesterol Calculated 176 mg/dL (<100); Potassium 4.3 mmol/L (3.4-5.1); Sodium 138 mmol/L (137-145); Total Protein 7.7 g/dL (6.3-8.2); Triglycerides 279 mg/dL (35-150)
[2023-02-18 06:04] LABS: x Labcorp Estim. Avg Glu (eAG) 103 mg/dL (.); x Labcorp Hemoglobin A1c 5.2 % (4.8-5.6)
== END ==
PROVIDERS: PCP Family Medicine; Referring Provider Family Medicine; Visit Provider Family Medicine
DX: N28.9 Disorder of kidney and ureter, unspecified (principal); R03.0 Elevated blood-pressure reading, without diagnosis of hypertension
CPT/HCPCS: 36415; 80053; 80061; 80305; 83036

== ENCOUNTER → 2024-05-22 14:33 | Outpatient (CLI) | payer OTHER, MEDICAID, SELFPAY ==
[2024-05-22 15:30] LABS: UR Morphine/Opiate cutoff 300 Negative (Negative); Ur Creatinine Normal (Normal); Ur Specific Gravity Normal (Normal); Urine Amphetamines Positive (Negative); Urine Barbiturates Negative (Negative); Urine Benzodiazepines Negative (Negative); Urine Cocaine Negative (Negative); Urine MDMA Negative (Negative); Urine Methadone Negative (Negative); Urine Methamphetamines Negative (Negative); Urine Oxycodone Negative (Negative); Urine Phencyclidine Negative (Negative); Urine Tetrahydrocannabinol Negative (Negative); Urine Tricyclic Antidepressant Negative (Negative); Urine pH Normal (Normal)
== END ==
PROVIDERS: PCP Family Medicine; Referring Provider Student in an Organized Health Care Education/Training Program; Visit Provider Student in an Organized Health Care Education/Training Program
DX: Z51.81 Encounter for therapeutic drug level monitoring (principal)
CPT/HCPCS: 80305

== ENCOUNTER → 2024-06-06 15:05 | Outpatient (CLI) | payer OTHER, MEDICAID, SELFPAY ==
[2024-06-06 16:34] LABS: Alanine Aminotransferase 25 IU/L (<50); Albumin 4.6 g/dL (3.5-5.0); Albumin Globulin Ratio 1.5 (1.0-2.8); Alkaline Phosphatase 62 U/L (38-126); Aspartate Aminotransferase 30 IU/L (17-59); BUN Creatinine Ratio 11.3 (6-22); Bilirubin Total 0.8 mg/dL (0.2-1.3); Blood Urea Nitrogen 15 mg/dL (9-20); Calcium 9.2 mg/dL (8.4-10.2); Carbon Dioxide 25 mmol/L (22-32); Chloride 103 mmol/L (98-107); Cholesterol 249 mg/dL (140-199); Estimated Glomerular Filt Rate > 60 mL/min (>60); Globulin 3.1 g/dL (1.7-4.1); Glucose 118 mg/dL (70-100); HDL Cholesterol 41 mg/dL (40-60); HEMOLYSIS < 15 (0-50); LDL Cholesterol Calculated 143 mg/dL (<100); Potassium 4.1 mmol/L (3.4-5.1); Sodium 138 mmol/L (137-145); Total Protein 7.7 g/dL (6.3-8.2); Triglycerides 324 mg/dL (35-150)
[2024-06-08 21:49] LABS: HIV 1 & 2 Ab/Ag 4th Gen Combo NEGATIVE (NEGATIVE); Hep C Virus Ab w/Reflex Quant NEGATIVE s/c (NEGATIVE)
== END ==
PROVIDERS: PCP Family Medicine; Referring Provider Family Medicine; Visit Provider Family Medicine
DX: E78.2 Mixed hyperlipidemia (principal); Z11.59 Encounter for screening for other viral diseases; Z11.4 Encounter for screening for human immunodeficiency virus [HIV]
CPT/HCPCS: 36415; 80053; 80061; 86803; 87389

== ENCOUNTER → 2024-09-21 10:07 | Outpatient (CLI) | payer OTHER, SELFPAY ==
[2024-09-21 10:41] LABS: Blood Urea Nitrogen 16 mg/dL (9-20); Calcium 9.8 mg/dL (8.4-10.2); Carbon Dioxide 32 mmol/L (22-32); Chloride 102 mmol/L (98-107); Cholesterol 141 mg/dL (140-199); Estimated Glomerular Filt Rate > 60 mL/min (>60); Glucose 104 mg/dL (70-100); HDL Cholesterol 56 mg/dL (40-60); HEMOLYSIS < 15 (0-50); LDL Cholesterol Calculated 53 mg/dL (<100); Potassium 4.6 mmol/L (3.4-5.1); Sodium 137 mmol/L (137-145); Triglycerides 162 mg/dL (35-150)
[2024-09-21 11:26] LABS: Creatinine Urine Random 261.96 mg/dL
[2024-09-21 11:31] LABS: Microalbumin Urine Random 0.7 mg/dL (0-1.6)
== END ==
PROVIDERS: PCP Family Medicine; Referring Provider Family Medicine; Visit Provider Family Medicine
DX: E78.2 Mixed hyperlipidemia (principal); N28.9 Disorder of kidney and ureter, unspecified; G25.81 Restless legs syndrome; G43.909 Migraine, unspecified, not intractable, without status migrainosus
CPT/HCPCS: 36415; 80048; 80061; 82043; 82570

== ENCOUNTER → 2025-05-09 10:02 | Outpatient (CLI) | payer OTHER, SELFPAY ==
[2025-05-09 12:56] LABS: UR Morphine/Opiate cutoff 300 Negative (Negative); Ur Specific Gravity Normal (Normal); Urine MDMA Negative (Negative); Urine Methamphetamines Negative (Negative); Urine Tetrahydrocannabinol Negative (Negative); Urine Tricyclic Antidepressant Negative (Negative)
== END ==
PROVIDERS: PCP Family Medicine; Referring Provider Student in an Organized Health Care Education/Training Program; Visit Provider Student in an Organized Health Care Education/Training Program
DX: Z51.81 Encounter for therapeutic drug level monitoring (principal)
CPT/HCPCS: 80305

== ENCOUNTER → 2025-07-02 10:19 | Outpatient (CLI) | payer OTHER, SELFPAY ==
[2025-07-02 12:52] LABS: Influenza A - CEPHEID Flu A NEGATIVE (NEGATIVE); Influenza B - CEPHEID Flu B NEGATIVE (NEGATIVE)
[2025-07-02 12:53] LABS: COVID-19 CEPHEID 4-PLEX PCR Negative (Negative)
== END ==
PROVIDERS: PCP Family Medicine; Visit Provider Physician Assistant
DX: J02.9 Acute pharyngitis, unspecified (principal)
CPT/HCPCS: 87637